=== PATIENT | male | born 1975 | race Two or more races ===

== ENCOUNTER 2023-07-10 10:15 | Inpatient (IN) | payer OTHER ==
[~2023-07-10] VITALS: Ht 177.8 cm; Wt 77.1 kg
[2023-07-10 10:36] LABS: PH,URINE 6.5 (5.0-8.0); URINE APPEARANCE Clear; URINE BILIRRUBIN Negative (NEGATIVE); URINE BLOOD Negative; URINE COLOR Yellow; URINE GLUCOSE Negative (NEGATIVE); URINE LEUKOCYTE Negative; URINE NITRATE Negative; URINE PROTEIN Negative (NEGATIVE); URINE UROBILINOGEN 0.2 E.U./dl
[2023-07-10 10:45] LABS: HEMATOCRIT 40.3 % (39.0-48.0); HEMOGLOBIN 13.4 g/dL (13-16.00); MEAN CELL VOLUME 89.1 fL (80.0-100.00); MEAN CORPUSCULAR HEMOGLOBIN 29.8 pg (27.00-32.0); MEAN CORPUSCULAR HGB CONC 33.4 g/dl (32.0-36.0); PLATELET COUNT 210 K/uL (150-450); RED BLOOD COUNT 4.52 M/uL (4.00-6.00); RED CELL DISTRIBUTION WIDTH 12.9 % (11.5-14.5)
[2023-07-10 10:46] LABS: URINE WBC 1.8 uL (0.0-23.2)
[2023-07-10 11:06] LABS: INR 1.06; PARTIAL THROMBOPLASTIN TIME 30.3 SECONDS (22.0-34.0); PROTHROMBIN TIME 11.1 SECONDS (9.0-11.5)
[2023-07-10 11:17] LABS: URINE BACTERIA 1.2 uL (0.0-1933); URINE EPITHELIAL CELLS 0.9 uL (0.0-38.8)
[2023-07-10 11:26] LABS: CALCIUM 8.6 mg/dL (8.5-10.1); CREATININE SERUM 0.92 mg/dL (0.70-1.30); GFR 88.57; POTASSIUM 4.38 mEq/L (3.5-5.1)
[2023-07-14 08:05] LABS: CREATININE SERUM 0.88 mg/dL (0.70-1.30); GFR 93.23; POTASSIUM 4.48 mEq/L (3.5-5.1)
[2023-07-14 09:00] LABS: HEMOGLOBIN 10.8 g/dL (13-16.00); MEAN CELL VOLUME 88.9 fL (80.0-100.00); MEAN CORPUSCULAR HEMOGLOBIN 29.1 pg (27.00-32.0); MEAN CORPUSCULAR HGB CONC 32.7 g/dl (32.0-36.0); PLATELET COUNT 201 K/uL (150-450); RED BLOOD COUNT 3.72 M/uL (4.00-6.00); RED CELL DISTRIBUTION WIDTH 12.5 % (11.5-14.5)
== END 2023-07-15 13:26 | disposition home or self-care (01) | DRG 707 ==
LOC: O/R 07-13 05:41 → SURG 07-13 07:00 → SURH 07-13 12:28
PROVIDERS: ADMIT Urology; ATTEND Urology
PROC: 0VT00ZZ Resection of Prostate, Open Approach (ICD-10-PCS; principal; 2023-07-13 07:00)
DX: C61 Malignant neoplasm of prostate (principal); N13.39 Other hydronephrosis; R59.0 Localized enlarged lymph nodes; D72.828 Other elevated white blood cell count